=== PATIENT | male | born 1955 | race Caucasian/White ===

== ENCOUNTER 2019-01-08 10:13 | Emergency (ER) | payer OTHER ==
[~2019-01-08] VITALS: Ht 185.4 cm; Wt 90.7 kg
[~2019-01-08 10:13] MED LIST: (None)20 M1 PO; ALBU90OI INH; ASPI81CH PO; ATEN50 PO; Ativan0.5 MG PO; Augmentin 875-1 EACH PO; BENZ100A PO; CEPH500 PO; CITA20 PO; CYCL10 PO; Ciprodex Otic7.5 ML BOTHEARS; FLUSAL2505 IH; GABA100; GUAI600T33 PO; HYDACE10B PO; METO25ER; Prednisone20 MG PO; SIMV5; TAMS.4ER PO; TELM80 PO; TIOT18 IH; VALS80 PO; Zithromax250 MG PO
[2019-01-08 10:50] LABS: BASOPHILS ABSOLUTE AUTO 0.01 K/mm3 (0.00-0.23); BASOPHILS PERCENT AUTO 0 % (0-2); EOSINOPHILS ABSOLUTE AUTO 0.01 K/mm3 (0.00-0.68); EOSINOPHILS PERCENT AUTO 0 % (0-6); Hematocrit 44.1 % (37.0-53.0); Hemoglobin 14.2 g/dL (13.5-17.5); IMMATURE GRAN ABSOLUTE AUTO 0.05 K/mm3 (0.00-0.10); IMMATURE GRAN PERCENT AUTO 1 % (0-1); LYMPHOCYTES ABSOLUTE AUTO 1.05 K/mm3 (0.84-5.20); LYMPHOCYTES PERCENT AUTO 22 % (21-46); MONOCYTES ABSOLUTE AUTO 2.17 K/mm3 (0.16-1.47); MONOCYTES PERCENT AUTO 45 % (4-13); Mean Corpuscular HGB 30.5 pg (26.0-34.0); Mean Corpuscular HGB Conc 32.2 g/dL (31.5-36.5); Mean Corpuscular Volume 95 fL (80-100); Mean Platelet Volume 10.2 fL (9.1-12.4); NEUTROPHILS ABSOLUTE AUTO 1.54 K/mm3 (1.96-9.15); NEUTROPHILS PERCENT AUTO 32 % (41-73); Platelet Count 139 K/mm3 (150-400); RDW Coefficient Variation 12.9 % (11.7-14.2); Red Blood Cell Count 4.66 M/mm3 (4.30-5.90); White Blood Cell Count 4.83 K/mm3 (4.00-11.30)
[2019-01-08 11:21] LABS: Alanine Aminotransfer (ALT/SGP 40 U/L (12-78); Albumin, Blood 4.3 g/dL (3.4-5.0); Alk Phos 55 U/L (50-136); Anion Gap 8 mmol/L (6-16); Aspartate Aminotrans (AST/SGOT 41 U/L (12-37); Bilirubin, Total 0.6 mg/dL (0.1-1.0); Blood Urea Nitrogen 24 mg/dL (8-24); Bun/Creatinine Ratio 21.4 (12.0-20.0); CO2, Blood 29 mmol/L (21-32); Calcium, Blood 8.9 mg/dL (8.5-10.1); Chloride, Blood 98 mmol/L (98-108); Creatinine, Blood 1.12 mg/dL (0.60-1.20); Globulin, Blood 4.4 g/dL (2.2-4.0); Glomerular Filtration Rate >60 (60-); Glucose, Blood 99 mg/dL (70-99); Potassium, Blood 3.6 mmol/L (3.5-5.5); Sodium, Blood 135 mmol/L (136-145); Total Protein, Blood 8.7 g/dL (6.4-8.2); Troponin I <0.015 ng/mL (0.000-0.040)
[2019-01-08 11:44] LABS: Influenza A Negative (NEGATIVE); Influenza B Negative (NEGATIVE)
[2019-01-08] MEDS ORDERED: Prednisone20 MG PO (11:56)
[2019-01-08] MEDS ORDERED: BUSP10 (12:52)
[2019-01-08] MEDS ORDERED: LOSA25 (12:53)
== END 2019-01-08 13:13 | disposition home or self-care (01) ==
LOC: ER 10:13
PROVIDERS: Physician Assistant
DX: J96.20 Acute and chronic respiratory failure, unspecified whether with hypoxia or hypercapnia (principal); I10 Essential (primary) hypertension; I25.2 Old myocardial infarction; N40.0 Benign prostatic hyperplasia without lower urinary tract symptoms; F17.210 Nicotine dependence, cigarettes, uncomplicated; Z79.52 Long term (current) use of systemic steroids; Z95.1 Presence of aortocoronary bypass graft
CPT/HCPCS: 36415; 71046; 80053; 83880; 84484; 85025; 87804; 93005; 93010; 94640; 94644; J2930

== ENCOUNTER 2019-01-11 05:42 | Inpatient (IN) | payer OTHER ==
[~2019-01-11] VITALS: Ht 182.9 cm; Wt 98.3 kg
[~2019-01-11 05:42] MED LIST changes: +BUSP10 PO; -GABA100; +GABA100 PO; +LOSA25 PO; -METO25ER; +METO25ER PO; +SIMV40 PO; -SIMV5
[2019-01-11 06:08] LABS: BASOPHILS ABSOLUTE AUTO 0.05 K/mm3 (0.00-0.23); BASOPHILS PERCENT AUTO 0 % (0-2); EOSINOPHILS ABSOLUTE AUTO 0.03 K/mm3 (0.00-0.68); EOSINOPHILS PERCENT AUTO 0 % (0-6); Hematocrit 39.2 % (37.0-53.0); Hemoglobin 12.8 g/dL (13.5-17.5); IMMATURE GRAN ABSOLUTE AUTO 0.76 K/mm3 (0.00-0.10); IMMATURE GRAN PERCENT AUTO 3 % (0-1); LYMPHOCYTES ABSOLUTE AUTO 0.57 K/mm3 (0.84-5.20); LYMPHOCYTES PERCENT AUTO 2 % (21-46); MONOCYTES ABSOLUTE AUTO 3.09 K/mm3 (0.16-1.47); MONOCYTES PERCENT AUTO 12 % (4-13); Mean Corpuscular HGB 30.6 pg (26.0-34.0); Mean Corpuscular HGB Conc 32.7 g/dL (31.5-36.5); Mean Corpuscular Volume 94 fL (80-100); Mean Platelet Volume 10.8 fL (9.1-12.4); NEUTROPHILS ABSOLUTE AUTO 20.38 K/mm3 (1.96-9.15); NEUTROPHILS PERCENT AUTO 82 % (41-73); Platelet Count 143 K/mm3 (150-400); RDW Coefficient Variation 12.9 % (11.7-14.2); RDW Standard Deviation 44.4 fL (35.1-46.3); Red Blood Cell Count 4.18 M/mm3 (4.30-5.90); White Blood Cell Count 24.88 K/mm3 (4.00-11.30)
[2019-01-11 06:35] LABS: Influenza A Negative (NEGATIVE); Influenza B Negative (NEGATIVE)
[2019-01-11 06:43] LABS: Alanine Aminotransfer (ALT/SGP 25 U/L (12-78); Albumin, Blood 3.5 g/dL (3.4-5.0); Albumin/Globulin Ratio 0.8 (0.8-1.8); Alk Phos 79 U/L (50-136); Anion Gap 10 mmol/L (6-16); Aspartate Aminotrans (AST/SGOT 25 U/L (12-37); Bilirubin, Total 0.4 mg/dL (0.1-1.0); Blood Urea Nitrogen 49 mg/dL (8-24); CO2, Blood 22 mmol/L (21-32); Calcium, Blood 8.5 mg/dL (8.5-10.1); Chloride, Blood 102 mmol/L (98-108); Globulin, Blood 4.6 g/dL (2.2-4.0); Glomerular Filtration Rate 54 (60-); Glucose, Blood 141 mg/dL (70-99); International Normalized Ratio 1.01; Potassium, Blood 3.8 mmol/L (3.5-5.5); Prothrombin Time Results 10.7 Sec (9.7-11.5); Sodium, Blood 134 mmol/L (136-145); Total Protein, Blood 8.1 g/dL (6.4-8.2); Troponin I <0.015 ng/mL (0.000-0.040)
[2019-01-11 16:08] LABS: Hematocrit 37.1 % (37.0-53.0)
--- NOTE | 2019-01-11 17:07 | NUR ---
Arrival/Summary See admit assessment for detailed assessment. Pt arrived to unit from ED at approx 1635. VSS. In no apparent sign of distress. Pt states that he is feeling much better compared to when he first came in this AM. Pt is independent in the room. Calling appropriately and repositions self. Denies any acute complaints at this time. Will continue to monitor until report is given to veronica GRANADOS.
--- NOTE | 2019-01-11 23:05 | NUR ---
PCU NIGHTSHIFT ASSUMED CARE OF PT APPROX. 1900. PT A&OX4. ASSESMENT COMPLETED. VITAL SIGNS STABLE. PT SITTING AT BEDSIDE AT THIS TIME. ABLE TO HAVE A SNACK AND TOLERATED WELL. LUNG SOUNDS COARSE T/O W/ EXPIRATORY WHEEZES IN LOW LOBES. HEART RATE SINUS TACHYCARDIA 100'-110'S. BED IN LOW POSITION, CALL LIGHT IN REACH AND PT DENIES ANY NEEDS AT THIS TIME. WILL CONTINUE TO MONITOR.
[2019-01-12 00:14] LABS: Hematocrit 37.2 % (37.0-53.0); Hemoglobin 12.1 g/dL (13.5-17.5)
--- NOTE | 2019-01-12 01:41 | NUR ---
note G.I. PHYSICIAN IN TO SEE PT. PHYSICIAN PLAN FOR POSSIBLE EGD TOMORROW (01/12/19). PT TO HAVE WATER ONLY UNTIL 0700AM ON 01/12/19. PT TO BE NPO AT 01/12/19 AT 0700.
[2019-01-12 04:13] LABS: Hematocrit 38.4 % (37.0-53.0); Hemoglobin 12.1 g/dL (13.5-17.5); Mean Corpuscular HGB 30.7 pg (26.0-34.0); Mean Corpuscular HGB Conc 31.5 g/dL (31.5-36.5); Mean Platelet Volume 10.5 fL (9.1-12.4); Platelet Count 153 K/mm3 (150-400); RDW Standard Deviation 46.5 fL (35.1-46.3); Red Blood Cell Count 3.94 M/mm3 (4.30-5.90); White Blood Cell Count 23.33 K/mm3 (4.00-11.30)
[2019-01-12 04:14] LABS: Mean Corpuscular Volume 98 fL (80-100)
[2019-01-12 04:28] LABS: Anion Gap 9 mmol/L (6-16); Blood Urea Nitrogen 28 mg/dL (8-24); Bun/Creatinine Ratio 33.2 (12.0-20.0); CO2, Blood 22 mmol/L (21-32); Calcium, Blood 8.2 mg/dL (8.5-10.1); Chloride, Blood 106 mmol/L (98-108); Creatinine, Blood 0.84 mg/dL (0.60-1.20); Glomerular Filtration Rate >60 (60-); Glucose, Blood 193 mg/dL (70-99); Potassium, Blood 4.5 mmol/L (3.5-5.5); Prothrombin Time Results 10.6 Sec (9.7-11.5); Sodium, Blood 137 mmol/L (136-145)
--- NOTE | 2019-01-12 05:47 | NUR ---
SHIFT SUMMARY PT PLEASANT, COOPERATIVE AND USES CALL LIGHT APPROPRIATELY. PT REMANINS A&OX4. ASSESSMENT FINDINGS FROM MORNING REMAIN UNCHANGED. VITAL SIGNS REMAIN STABLE. OXYGEN SATS IN 90'S VIA 5L OXYGEN VIA N.C. PT ABLE TO AMBULATE TO BATHROOM NEEDED. PMD AND G.I. PHYSICAIN IN TO SEE PT THIS SHIFT. PT TO BE NPO AT 0700 THIS MORNING, 01/12/19. BED IN LOW POSITION, CALL LIGHT IN REACH AND PT DENIES ANY NEEDS AT THIS TIME. WILL CONTINUE TO MONITOR UNTIL HANDOFF TO DAYSHIFT RN.
--- NOTE | 2019-01-12 08:49 | NUR ---
Assumed Care: Assumed care of pt at approx 0700. VSS. In no apparent sign of distress. C/o some mild pain to R rib cage for past few days, but that pain is tolerable. Pt now on RA and is tolerating well. See shift assessment for detailed assessment. Plan is for pt to have CT scan to rule out PE this AM and for EGD later today. Pt has been NPO since 0700 per orders from GI. Pt is currently resting in bed with call light within reach. Denies any further questions, complaints or requests at this time. Will continue to monitor.
--- NOTE | 2019-01-12 16:49 | NUR ---
01/12/[address] HERE TO PROVIDE ANESTHESIA CARE, PLEASE SEE ANESTHESIA RECORD FOR DETAILS. History, Chart, Medications and Allergies reviewed before start of procedure. PATIENT CONFIRMS NPO STATUS AND AGREES WITH SCHEDULED PROCEDURE. MONITOR INTACT WITH CONTINUOUS PULSE OXIMETRY AND INTERMITTENT BP. O2 VIA N/C INTACT THROUGHOUT SEDATION/PROCEDURE, WITH POM MASK AT 10 L.
--- NOTE | 2019-01-13 00:23 | NUR ---
PCU NIGHTSHIFT ASSUMED CARE OF PT LANNY. 1899. A&O X4. ASSESSMENT COMPLETED, VITAL SIGNS TABLE. PT HEART RATE REMAINS SINUS TACHYCARDIA. IN REPORT PREVIOUS SHIFT RN REPORTED PT HAD SOME AGGITATION AND CONFUSION WITH ANESTETHIA WEARING OFF. IN ASSESSING THE PT NO S/SX OF THIS WAS NOTED. WILL CONTINUE TO MONITOR THIS. PT ABLE TO EAT DINNER AND TOLERATED WELL. BED IN LOW POSTION, BED ALARM ON, CALL LIGHT IN REACH AND PT DENEIS ANY NEEDS AT THIS TIME.
[2019-01-13 04:21] LABS: BASOPHILS ABSOLUTE AUTO 0.04 K/mm3 (0.00-0.23); BASOPHILS PERCENT AUTO 0 % (0-2); EOSINOPHILS ABSOLUTE AUTO 0.01 K/mm3 (0.00-0.68); EOSINOPHILS PERCENT AUTO 0 % (0-6); Hematocrit 33.7 % (37.0-53.0); Hemoglobin 10.6 g/dL (13.5-17.5); IMMATURE GRAN ABSOLUTE AUTO 0.84 K/mm3 (0.00-0.10); IMMATURE GRAN PERCENT AUTO 7 % (0-1); LYMPHOCYTES ABSOLUTE AUTO 0.57 K/mm3 (0.84-5.20); LYMPHOCYTES PERCENT AUTO 4 % (21-46); MONOCYTES ABSOLUTE AUTO 1.34 K/mm3 (0.16-1.47); MONOCYTES PERCENT AUTO 10 % (4-13); Mean Corpuscular HGB Conc 31.5 g/dL (31.5-36.5); Mean Corpuscular Volume 96 fL (80-100); Mean Platelet Volume 10.9 fL (9.1-12.4); NEUTROPHILS ABSOLUTE AUTO 10.16 K/mm3 (1.96-9.15); NEUTROPHILS PERCENT AUTO 78 % (41-73); NRBC ABSOLUTE 0.02 K/mm3 (0.00-0.02); NRBC Auto 0.2 /100 WBC (0.0-0.2); Platelet Count 179 K/mm3 (150-400); RDW Coefficient Variation 13.2 % (11.7-14.2); Red Blood Cell Count 3.53 M/mm3 (4.30-5.90); White Blood Cell Count 12.96 K/mm3 (4.00-11.30)
[2019-01-13 04:46] LABS: Albumin, Blood 2.5 g/dL (3.4-5.0); Anion Gap 7 mmol/L (6-16); Blood Urea Nitrogen 22 mg/dL (8-24); Bun/Creatinine Ratio 30.1 (12.0-20.0); CO2, Blood 26 mmol/L (21-32); Calcium, Blood 8.2 mg/dL (8.5-10.1); Chloride, Blood 106 mmol/L (98-108); Creatinine, Blood 0.73 mg/dL (0.60-1.20); Glomerular Filtration Rate >60 (60-); Glucose, Blood 208 mg/dL (70-99); Phosphorus, Blood 1.9 mg/dL (2.5-4.9); Sodium, Blood 139 mmol/L (136-145)
--- NOTE | 2019-01-13 05:51 | NUR ---
SHIFT SUMMARY PT PLEASANT, COOPERATIVE AND USES CALL LIGHT APPROPRIATELY. PT REMAINS A&O X4, ASSESSMENT FINDINGS REMAIN UNCHANGED AND VITAL SIGNS STABLE. ALTHOUGHT APPROX. 0230 PT WOKE UP FROM DEEP SLEEP AND WAS SLIGHTLY DISORIENTED. REORIENTED PT BACK TO UNIT. AFTER A SHORT PERIOD OF TIME PT WAS ABLE TO TELL ME HOW HE HAD WOKE UP AND WAS STILL SLEEPY AND SLIGHTLY CONFUSED. HE WAS ABLE TO TELL ME DATE, TIME, PLACE AND SITUATION. AND ANSWER ALL OTHER QUESTIONS AT THIS TIME. HAS REMAINED ORIENTED AFTER THIS. PT WAS ABLE TO REST MOST OF SHIFT. BED IN LOW POSTION, CALL LIGHT IN REACH AND PT DENIES ANY NEEDS AT THIS TIME. WILL CONTINUE TO MONITOR UNTIL HANDOFF TO DAYSHIFT RN.
--- NOTE | 2019-01-13 07:42 | NUR ---
Assumed Care: Assumed care of pt at approx 0700. VSS. in no apparent sign of distress. Pt is A&Ox4. Calls appropriately. Denies any pain. See shift assessment for detailed assessment. Pt receiving breathing treatment at this time. Currently sitting up at bedside. Pt reports that he has been working on PT exercises that were taught to him t/o the night. Denies any further questions, complaints or requests at this time. Will continue to monitor.
--- NOTE | 2019-01-13 19:30 | NUR ---
Shift Summary No acute changes since initial shift assessment. VSS. In no apparent sign of distress. Pt is A&Ox4. Calls appropriately and denies any pain. No s/sx of any GI bleed t/o the shift. Pt has overall had an uneventful day. Calls appropriately. Independent in room. Plan is to keep pt for at least one more day for final blood culture results. Pt on RA and tolerating well. Pt med status with tele, but no bed assignment at this time. No acute changes or events on tele. Pt now SR in the 's. Denies any other acute complaints/events t/o the shift. Currently resting in bed with call light within reach. Denies any further questions, complaints or requests at this time. Report given to veronica GRANADOS.
--- NOTE | 2019-01-13 23:52 | NUR ---
PCU NIGHTSHIFT ASSUMED CARE OF PT APPROX. 1900. PT A&O X4, ASSESSMENT COMPLETED, VITAL SIGNS STABLE. ALTHOUGH PT BLOOD PRESSURE SLIGHTLY ELEVATED WHEN TAKE PT HAD JUST FINISHED WALKING AROUND ROOM, AND WAS TALKING WITH FAMILY AND SLIGHTLY AGGITATED. WILL CONTINUE TO MONITOR THIS. PT SITTING AT BEDSIDE AT SHIFT CHANGED. PT ON RA WITH SATS IN 90'S. FAMILY AT BEDSIDE. ANSWERED QUESTIONS CAME UP. BED IN LOW POSTION, CALL LIGHT IN REACH AND PT DENIES ANY NEEDS AT THIS TIME. WILL CONTINUE TO MONITOR.
--- NOTE | 2019-01-14 05:06 | NUR ---
SHIFT SUMMARY PT PLEASANT, COOPERATIVE, AND USES CALL LIGHT APPROPRIATELY. PT REMAINS A&O X4, ASSESSMENT FINDINGS REMAIN UNCHANGED. VITAL SIGNS STABLE. PT ON ROOM AIR WITH OXYGEN SATS IN 90'S. PT ABLE TO REST MOST OF SHIFT. PT STATES HE IS READY TO GO. BED IN LOW POSITION, CALL LIGHT IN REACH AND PT DENIES ANY NEEDS AT THIS TIME. WILL CONTINUE TO MONITOR UNTIL HANDOFF TO DAYSHIFT RN.
[2019-01-14 05:16] LABS: Hematocrit 36.2 % (37.0-53.0); Hemoglobin 11.4 g/dL (13.5-17.5); Mean Corpuscular HGB 30.5 pg (26.0-34.0); Mean Corpuscular HGB Conc 31.5 g/dL (31.5-36.5); Mean Corpuscular Volume 97 fL (80-100); Mean Platelet Volume 10.5 fL (9.1-12.4); NRBC ABSOLUTE 0.03 K/mm3 (0.00-0.02); NRBC Auto 0.2 /100 WBC (0.0-0.2); Platelet Count 205 K/mm3 (150-400); RDW Coefficient Variation 13.1 % (11.7-14.2); RDW Standard Deviation 46.5 fL (35.1-46.3); Red Blood Cell Count 3.74 M/mm3 (4.30-5.90); White Blood Cell Count 15.89 K/mm3 (4.00-11.30)
[2019-01-14 05:42] LABS: Albumin, Blood 2.6 g/dL (3.4-5.0); Anion Gap 9 mmol/L (6-16); Blood Urea Nitrogen 23 mg/dL (8-24); Bun/Creatinine Ratio 29.9 (12.0-20.0); CO2, Blood 24 mmol/L (21-32); Calcium, Blood 8.2 mg/dL (8.5-10.1); Chloride, Blood 105 mmol/L (98-108); Creatinine, Blood 0.77 mg/dL (0.60-1.20); Glomerular Filtration Rate >60 (60-); Glucose, Blood 112 mg/dL (70-99); Phosphorus, Blood 2.3 mg/dL (2.5-4.9); Potassium, Blood 4.2 mmol/L (3.5-5.5); Sodium, Blood 138 mmol/L (136-145)
[2019-01-14 06:22] LABS: BASOPHILS PERCENT MAN 0 % (0-2); EOSINOPHILS PERCENT MAN 0 % (0-6); LYMPHOCYTES ABSOLUTE MAN 1.58 K/mm3 (0.84-5.20); LYMPHOCYTES PERCENT MAN 10 % (21-46); METAMYELOCYTE ABSOLUTE MAN 1.11 K/mm3 (0.00-0.00); METAMYELOCYTE PERCENT MAN 7 % (0-0); MONOCYTES ABSOLUTE MAN 1.74 K/mm3 (0.16-1.47); MONOCYTES PERCENT MAN 11 % (4-13); MYELOCYTE ABSOLUTE MAN 0.47 K/mm3 (0.00-0.00); MYELOCYTE PERCENT MAN 3 % (0-0); NEUTROPHILS ABSOLUTE MAN 10.96 K/mm3 (1.96-9.15); SEG NEUTROPHILS PERCENT MAN 69 % (41-73); TOTAL CELLS COUNTED 100
--- NOTE | 2019-01-14 10:25 | NUR ---
ELEVATED BP TALKED WITH DR FUCHS THIS AM ABOUT PT ELEVATED BP DURING THE NIGHT. GAVE PT HIS AM MEDICATIONS EARLY D/T ELEVATED BP. CHECKED HIS BP AT RESTA BOUT AN HOUR AFTER MEDICATIONS. BP DOWN SOME. CHECKED HIM AGAIN AFTER WALKING AND GHIS BP ELEVATED. CALLED Sven FUCHS. ORDER RECEIVED. D/C ORDER HAVE ARRIVED. TALKED WITH PT. HE UNDERSTANDS THE NEED TO GET HIS BP LOWER BEFORE GOING HOME. CONTINUE POT,.
[2019-01-14] MEDS ORDERED: PRED20 PO (10:45)
[2019-01-14] MEDS ORDERED: AZIT500 PO (10:46)
[2019-01-14] MEDS ORDERED: CEFP200 PO (10:47)
[2019-01-14] MEDS ORDERED: GUAI600T33 PO (10:47)
[2019-01-14] MEDS ORDERED: OMEPRAZOLE MAGN20 MG PO (10:48)
--- NOTE | 2019-01-14 10:48 | NUR ---
Spiritual care/advance directive education visit conducted. I entered patient's room and found him sitting on the edge of his bed. I introduced myself and patient welcomed me in. Therapeutic alliance was easily established so patient openly shared about his brigida traditions, his family and his current medical issues. I listened empathically, normalized patient's experience, provided pastoral psychosocial rehabilitation counselor and provided prayer. Patient responded well to all interventions. I also spoke with patient about filling out an advance directive. Patient did not comprehend the content or resaon for filing the advance directive. I aprroached this from several different angles until it appeared to be awkard so I simply left the document with patient and patient said that he would read through it with his . The visit ended well with a prayer of blessing to which patient expressed gratitude.
--- NOTE | 2019-01-14 12:22 | NUR ---
ELEVATED BP GAVE PT HYDRALAZINE 10MG IV X1 AT 1030. CHECKED BLOOD PRESSURE SEVERAL TIMES AFTER. CALLED DR FUCHS TO REPORT BP. DBP 90+ [facility]. ORDER TO HOLD DISCARGE AND RECHECK BP IN 1 HOUR. FAMILY HERE. CONTINUE POT.
--- NOTE | 2019-01-14 19:50 | NUR ---
ASSUMED CARED PT RESTIN IN ROOM COMFORTABLY W/ SPOUSE AT BEDSIDE. PLEASENT AFFECT AND COOPERATIVE W/ CARE. PER DAY SHIFT PT WAS TO BE DC'D THIS AFTERNOON BUT PT HAD HTN T/O DAY, THAT WOULD NOT RESOLVE W/ MEDICATIONS WELL. PT DENIES ANY CP, REPORTS SOB DECREASED. REPORTS STILL HAS COUGH, BUT REPORTS FEELING WELL ENOUGH TO GO HOME. REPS EVEN UNLBOARED ON RA. CALL LIGHT IN REACH.
[2019-01-15 05:14] LABS: Hematocrit 37.1 % (37.0-53.0); Hemoglobin 11.9 g/dL (13.5-17.5); Mean Corpuscular HGB 30.4 pg (26.0-34.0); Mean Corpuscular HGB Conc 32.1 g/dL (31.5-36.5); Mean Corpuscular Volume 95 fL (80-100); Mean Platelet Volume 10.4 fL (9.1-12.4); NRBC ABSOLUTE 0.05 K/mm3 (0.00-0.02); NRBC Auto 0.3 /100 WBC (0.0-0.2); Platelet Count 214 K/mm3 (150-400); RDW Coefficient Variation 13.2 % (11.7-14.2); RDW Standard Deviation 45.3 fL (35.1-46.3); Red Blood Cell Count 3.92 M/mm3 (4.30-5.90); White Blood Cell Count 18.43 K/mm3 (4.00-11.30)
[2019-01-15 05:43] LABS: Albumin, Blood 2.6 g/dL (3.4-5.0); Anion Gap 8 mmol/L (6-16); Blood Urea Nitrogen 19 mg/dL (8-24); Bun/Creatinine Ratio 28.1 (12.0-20.0); CO2, Blood 26 mmol/L (21-32); Chloride, Blood 103 mmol/L (98-108); Creatinine, Blood 0.68 mg/dL (0.60-1.20); Glomerular Filtration Rate >60 (60-); Glucose, Blood 95 mg/dL (70-99); Potassium, Blood 3.9 mmol/L (3.5-5.5); Sodium, Blood 137 mmol/L (136-145)
[2019-01-15 06:07] LABS: BAND PERCENT MAN 1 % (0-8); BASOPHILS PERCENT MAN 0 % (0-2); EOSINOPHILS PERCENT MAN 0 % (0-6); LYMPHOCYTES ABSOLUTE MAN 2.94 K/mm3 (0.84-5.20); LYMPHOCYTES PERCENT MAN 16 % (21-46); METAMYELOCYTE ABSOLUTE MAN 1.29 K/mm3 (0.00-0.00); METAMYELOCYTE PERCENT MAN 7 % (0-0); MONOCYTES ABSOLUTE MAN 1.47 K/mm3 (0.16-1.47); MONOCYTES PERCENT MAN 8 % (4-13); MYELOCYTE ABSOLUTE MAN 0.55 K/mm3 (0.00-0.00); MYELOCYTE PERCENT MAN 3 % (0-0); NEUTROPHILS ABSOLUTE MAN 12.16 K/mm3 (1.96-9.15); SEG NEUTROPHILS PERCENT MAN 65 % (41-73); TOTAL CELLS COUNTED 100
--- NOTE | 2019-01-15 06:52 | NUR ---
SHIFT SUMMARY PT RESTING IN ROOM COMFORTABLY W/ SPOUSE AT BEDSIDE. NO ACUTE CHANGES IN STATUS OVERNIGHT. PT BP DECREASED OVERNIGHT, WITH A SLIGHT INCREASE THIS AM. BP STILL REMAINS AT A STABLE LEVEL. PER PT AM BP IS BASELINE FOR HIM AT HOME. PT REPORTS HAS HX OF HTN. PT LOOKING FORWARD TO DOCTOR ARRIVAL FOR DC TODAY. EDUCATED THAT PROVIDER WILL COME EVALUATE PT FOR DC THIS AM. CALL LIGHT IN REACH.
--- NOTE | 2019-01-15 09:48 | NUR ---
PT IS DISCHARGED TO HOME. OUT TO LOBBY VIA WHEEL CHAIR. CHANGED 3 MEDICATIONS ON EMAR PRIOR TO PATIENT LEAVING AND [facility] IS NOTIFIED IN [place]. ALSO NEBULIZER ORDER IS OBTAINED AND FAXED TO [facility] FOR PATIENT.
[2019-01-15 11:10] LABS: HEPATITIS C QUANTITATION 54900 IU/mL (.)
[2019-01-17 14:08] LABS: HEPATITIS C GENOTYPE 2a/2c (.)
== END 2019-01-15 09:44 | disposition home or self-care (01) | DRG 871 ==
LOC: ER 05:42 → ERHOLD 08:29 → PCU 08:29
PROVIDERS: Emergency Medicine; Family Medicine; Internal Medicine Critical Care Medicine; Internal Medicine Gastroenterology; ADMIT Internal Medicine
PROC: 0DB98ZX Excision of Duodenum, Via Natural or Artificial Opening Endoscopic, Diagnostic (ICD-10-PCS; 2019-01-12)
PROC: 0W3P8ZZ Control Bleeding in Gastrointestinal Tract, Via Natural or Artificial Opening Endoscopic (ICD-10-PCS; principal; 2019-01-12 11:30)
PROC: 0DB98ZX Excision of Duodenum, Via Natural or Artificial Opening Endoscopic, Diagnostic (ICD-10-PCS; 2019-01-12 11:30)
PROC: 0DB68ZX Excision of Stomach, Via Natural or Artificial Opening Endoscopic, Diagnostic (ICD-10-PCS; 2019-01-12 11:30)
DX: A41.2 Sepsis due to unspecified staphylococcus (principal); R65.21 Severe sepsis with septic shock; J96.21 Acute and chronic respiratory failure with hypoxia; J18.9 Pneumonia, unspecified organism; J69.0 Pneumonitis due to inhalation of food and vomit; K22.11 Ulcer of esophagus with bleeding; J44.1 Chronic obstructive pulmonary disease with (acute) exacerbation; E87.1 Hypo-osmolality and hyponatremia; J44.0 Chronic obstructive pulmonary disease with (acute) lower respiratory infection; D62 Acute posthemorrhagic anemia; I10 Essential (primary) hypertension; I25.10 Atherosclerotic heart disease of native coronary artery without angina pectoris; G40.909 Epilepsy, unspecified, not intractable, without status epilepticus; E83.39 Other disorders of phosphorus metabolism; D64.9 Anemia, unspecified; B19.20 Unspecified viral hepatitis C without hepatic coma; K21.9 Gastro-esophageal reflux disease without esophagitis; N40.0 Benign prostatic hyperplasia without lower urinary tract symptoms; D69.6 Thrombocytopenia, unspecified
CPT/HCPCS: 36415; 71046; 71260; 76700; 80048; 80053; 80069; 82105; 83605; 83880; 84484; 85014; 85018; 85025; 85027; 85610; 85730; 87040; 87070; 87205; 87522; 87804; 87902; 88305; 88341; 88342; 93005; 93010; 94640; 94644; 94760; 96361; 96374; 96375; 97110; 97116; 97161; 99285-25; C9113; J0360; J0456; J0696; J2250; J2930; J7030; J7050; J7120; Q9967

== ENCOUNTER 2019-10-04 09:49 | Day surgery (SDC) | payer OTHER ==
[~2019-10-04] VITALS: Ht 182.9 cm; Wt 111.4 kg
[~2019-10-04 09:49] MED LIST changes: +AZIT500 PO; +CEFP200 PO; +OMEPRAZOLE MAGN20 MG PO; +PRED20 PO; +Venlafaxine H37.5 MG PO
== END 2019-10-04 11:59 | disposition home or self-care (01) ==
LOC: ORSCSDS 09:49
DX: Z12.11 Encounter for screening for malignant neoplasm of colon (principal); Z86.010 Personal history of colon polyps; D12.2 Benign neoplasm of ascending colon; D12.4 Benign neoplasm of descending colon; K63.5 Polyp of colon; K64.8 Other hemorrhoids; I10 Essential (primary) hypertension; I25.10 Atherosclerotic heart disease of native coronary artery without angina pectoris; J44.9 Chronic obstructive pulmonary disease, unspecified; K21.9 Gastro-esophageal reflux disease without esophagitis; Z79.899 Other long term (current) drug therapy; I25.2 Old myocardial infarction; Z87.891 Personal history of nicotine dependence
CPT/HCPCS: 88305; J2405; J2704; J7120

== ENCOUNTER → 2019-11-01 | Outpatient (CLI) | payer OTHER ==
[~2019-11-01] MED LIST changes: +ALBU2.5V5 INH; +AMLO5 PO; +ATOR80 PO; +Aspir 8181 MG PO; +CLOP75 PO; +HYDCHL25 PO; +STIOLTO RESPIMAT4 GM INH
== END | disposition home or self-care (01) ==
LOC: LAB 17:30 → LAB SHORT 17:30
DX: L02.91 Cutaneous abscess, unspecified (principal)
CPT/HCPCS: 87070; 87077; 87147; 87186; 87205

== ENCOUNTER 2019-12-09 09:00 | Day surgery (SDC) | payer OTHER ==
[~2019-12-09] VITALS: Ht 182.9 cm; Wt 113.0 kg
[2019-12-09 10:34] LABS: BASOPHILS ABSOLUTE AUTO 0.02 K/mm3 (0.00-0.23); BASOPHILS PERCENT AUTO 0 % (0-2); EOSINOPHILS ABSOLUTE AUTO 0.01 K/mm3 (0.00-0.68); EOSINOPHILS PERCENT AUTO 0 % (0-6); Hematocrit 39.6 % (37.0-53.0); Hemoglobin 12.3 g/dL (13.5-17.5); IMMATURE GRAN ABSOLUTE AUTO 0.18 K/mm3 (0.00-0.10); IMMATURE GRAN PERCENT AUTO 3 % (0-1); LYMPHOCYTES ABSOLUTE AUTO 1.44 K/mm3 (0.84-5.20); LYMPHOCYTES PERCENT AUTO 20 % (21-46); MONOCYTES ABSOLUTE AUTO 1.12 K/mm3 (0.16-1.47); MONOCYTES PERCENT AUTO 15 % (4-13); Mean Corpuscular HGB 29.7 pg (26.0-34.0); Mean Corpuscular HGB Conc 31.1 g/dL (31.5-36.5); Mean Corpuscular Volume 96 fL (80-100); Mean Platelet Volume 10.3 fL (9.1-12.4); NEUTROPHILS ABSOLUTE AUTO 4.53 K/mm3 (1.96-9.15); NEUTROPHILS PERCENT AUTO 62 % (41-73); Platelet Count 178 K/mm3 (150-400); RDW Coefficient Variation 13.6 % (11.7-14.2); RDW Standard Deviation 48.1 fL (35.1-46.3); Red Blood Cell Count 4.14 M/mm3 (4.30-5.90)
[2019-12-09 10:36] LABS: Anion Gap 6 mmol/L (6-16); Blood Urea Nitrogen 14 mg/dL (8-24); CO2, Blood 27 mmol/L (21-32); Calcium, Blood 8.9 mg/dL (8.5-10.1); Chloride, Blood 103 mmol/L (98-108); Creatinine, Blood 0.88 mg/dL (0.60-1.20); Glomerular Filtration Rate >60 (60-); Glucose, Blood 98 mg/dL (70-99); Potassium, Blood 3.7 mmol/L (3.5-5.5); Sodium, Blood 136 mmol/L (136-145)
[2019-12-09 10:37] LABS: International Normalized Ratio 1.02; Prothrombin Time Results 10.9 Sec (9.7-11.5)
--- NOTE | 2019-12-09 16:42 | NUR ---
1645 Patient up oob and dressed. Groin site stable with tegaderm and Efrain patch in place. Patinet instructed to removed tomorrow afternoon. Shower only and no lifting for 5 days. PIV discontinued from the left AC and pressure dressing applied. Patient instructed to removed the left arm dressing in an hour. Reviewed all medication and no changes to med by MD. at bedside, Patient and deny any questions or concerns. They have a son comin to pick them up at 1700. Patient escorted to the door to wait for ride. Discharged home at 1700.
== END 2019-12-09 16:45 | disposition home or self-care (01) ==
LOC: MHTC 09:00
PROVIDERS: Internal Medicine Cardiovascular Disease
PROC: 4A023N7 Measurement of Cardiac Sampling and Pressure, Left Heart, Percutaneous Approach (ICD-10-PCS; principal; 2019-12-09)
PROC: B201YZZ Plain Radiography of Multiple Coronary Arteries using Other Contrast (ICD-10-PCS; principal; 2019-12-09)
PROC: B203YZZ Plain Radiography of Multiple Coronary Artery Bypass Grafts using Other Contrast (ICD-10-PCS; principal; 2019-12-09)
DX: I25.10 Atherosclerotic heart disease of native coronary artery without angina pectoris (principal); I25.810 Atherosclerosis of coronary artery bypass graft(s) without angina pectoris; E78.5 Hyperlipidemia, unspecified; E66.3 Overweight; B19.10 Unspecified viral hepatitis B without hepatic coma; B19.20 Unspecified viral hepatitis C without hepatic coma; J44.9 Chronic obstructive pulmonary disease, unspecified; Z79.82 Long term (current) use of aspirin; Z79.899 Other long term (current) drug therapy; Z87.891 Personal history of nicotine dependence; Z68.34 Body mass index [BMI] 34.0-34.9, adult
CPT/HCPCS: 80048; 85025; 85610; 93459; 99152; 99153; C1769; C1894; J1644; J2250; J3010; J7030; Q9967

== ENCOUNTER → 2020-01-06 | Outpatient (CLI) | payer OTHER ==
[~2020-01-06] MED LIST changes: +SPIR25; +STIOLTO RESPIMAT4 GM; +TORSE20
[2020-01-06 14:37] LABS: BASOPHILS ABSOLUTE AUTO 0.03 K/mm3 (0.00-0.23); BASOPHILS PERCENT AUTO 0 % (0-2); EOSINOPHILS ABSOLUTE AUTO 0.03 K/mm3 (0.00-0.68); EOSINOPHILS PERCENT AUTO 0 % (0-6); Hematocrit 39.6 % (37.0-53.0); Hemoglobin 12.7 g/dL (13.5-17.5); IMMATURE GRAN ABSOLUTE AUTO 0.33 K/mm3 (0.00-0.10); IMMATURE GRAN PERCENT AUTO 3 % (0-1); LYMPHOCYTES ABSOLUTE AUTO 2.08 K/mm3 (0.84-5.20); LYMPHOCYTES PERCENT AUTO 17 % (21-46); MONOCYTES ABSOLUTE AUTO 1.54 K/mm3 (0.16-1.47); MONOCYTES PERCENT AUTO 13 % (4-13); Mean Corpuscular HGB 30.6 pg (26.0-34.0); Mean Corpuscular HGB Conc 32.1 g/dL (31.5-36.5); Mean Corpuscular Volume 95 fL (80-100); Mean Platelet Volume 10.8 fL (9.1-12.4); NEUTROPHILS ABSOLUTE AUTO 7.94 K/mm3 (1.96-9.15); NEUTROPHILS PERCENT AUTO 66 % (41-73); Platelet Count 236 K/mm3 (150-400); RDW Coefficient Variation 14.4 % (11.7-14.2); RDW Standard Deviation 50.4 fL (35.1-46.3); Red Blood Cell Count 4.15 M/mm3 (4.30-5.90); White Blood Cell Count 11.95 K/mm3 (4.00-11.30)
[2020-01-06 14:42] LABS: Bun/Creatinine Ratio 18.4 (12.0-20.0); Calcium, Blood 9.3 mg/dL (8.5-10.1); Creatinine, Blood 1.36 mg/dL (0.60-1.20); Potassium, Blood 4.1 mmol/L (3.5-5.5)
== END | disposition home or self-care (01) ==
LOC: LAB SHORT 14:34 → LAB EV 14:34
PROVIDERS: Family Medicine
DX: R55 Syncope and collapse (principal)
CPT/HCPCS: 80048; 85025

== ENCOUNTER → 2020-03-19 | Outpatient (CLI) | payer OTHER ==
[2020-03-19 14:00] LABS: BASOPHILS ABSOLUTE AUTO 0.02 K/mm3 (0.00-0.23); BASOPHILS PERCENT AUTO 0 % (0-2); EOSINOPHILS ABSOLUTE AUTO 0.02 K/mm3 (0.00-0.68); EOSINOPHILS PERCENT AUTO 0 % (0-6); Hematocrit 34.4 % (37.0-53.0); IMMATURE GRAN ABSOLUTE AUTO 0.34 K/mm3 (0.00-0.10); IMMATURE GRAN PERCENT AUTO 3 % (0-1); LYMPHOCYTES ABSOLUTE AUTO 2.09 K/mm3 (0.84-5.20); LYMPHOCYTES PERCENT AUTO 19 % (21-46); MONOCYTES ABSOLUTE AUTO 1.28 K/mm3 (0.16-1.47); MONOCYTES PERCENT AUTO 12 % (4-13); Mean Corpuscular HGB 31.3 pg (26.0-34.0); Mean Corpuscular Volume 98 fL (80-100); NEUTROPHILS ABSOLUTE AUTO 7.05 K/mm3 (1.96-9.15); NEUTROPHILS PERCENT AUTO 65 % (41-73); Platelet Count 203 K/mm3 (150-400); RDW Coefficient Variation 14.7 % (11.7-14.2); RDW Standard Deviation 52.6 fL (35.1-46.3); Red Blood Cell Count 3.52 M/mm3 (4.30-5.90)
[2020-03-19 14:17] LABS: Alanine Aminotransfer (ALT/SGP 34 U/L (12-78); Albumin, Blood 4.6 g/dL (3.4-5.0); Alk Phos 74 U/L (40-126); Anion Gap 11 mmol/L (6-16); Aspartate Aminotrans (AST/SGOT 23 U/L (12-37); Bilirubin, Total 0.4 mg/dL (0.1-1.0); Blood Urea Nitrogen 20 mg/dL (8-24); Bun/Creatinine Ratio 15.4 (12.0-20.0); CO2, Blood 29 mmol/L (21-32); Chloride, Blood 100 mmol/L (98-108); Globulin, Blood 4.4 g/dL (2.2-4.0); Glomerular Filtration Rate 55 (60-); Glucose, Blood 94 mg/dL (70-99); Potassium, Blood 4.2 mmol/L (3.5-5.5); Sodium, Blood 140 mmol/L (136-145); Thyroid Stimulating Hormone 2.717 uIU/mL (0.360-4.800)
[2020-03-19 14:19] LABS: Troponin I <0.017 ng/mL (0.000-0.040)
== END | disposition home or self-care (01) ==
LOC: LAB EV 13:53 → LAB SHORT 13:53
PROVIDERS: Physician Assistant
DX: R06.09 Other forms of dyspnea (principal); R53.83 Other fatigue; D50.9 Iron deficiency anemia, unspecified; Z20.828 Contact with and (suspected) exposure to other viral communicable diseases
CPT/HCPCS: 80053; 83540; 83550; 83880; 84443; 84484; 85025; 85379; U0003

== ENCOUNTER → 2020-04-29 | Outpatient (CLI) | payer OTHER | END | disposition home or self-care (01) | LOC: LAB 11:44 → LAB SHORT 11:44 | DX: R05 Cough (principal) | CPT/HCPCS: 87070; 87205 ==

== ENCOUNTER 2020-09-01 09:46 | Day surgery (SDC) | payer OTHER ==
[~2020-09-01] VITALS: Ht 182.9 cm; Wt 120.9 kg
[~2020-09-01 09:46] MED LIST changes: +BUDE.25 INH; +METO2.5 PO; +METO50ER PO; -SPIR25; +SPIR25 PO; -TORSE20; +TORSE20 PO
[2020-09-01] MEDS ORDERED: DONE5 (10:22)
[2020-09-01] MEDS ORDERED: DONE5 PO (10:22)
[2020-09-01] MEDS ORDERED: Loratadine10 MG (10:23)
--- NOTE | 2020-09-01 11:24 | NUR ---
09/01/20 1124 Stacy Velazquez UPDATED PATIENT ON DELAY. INFORMED PATIENT THAT WE WERE STILL WAITING FOR HIS ANESTHESIOLOGIST. PATIENT AND FAMILY VERBALIZES UNDERSTANDING. ASSISTED PATIENT TO A MORE UPRIGHT SEATED POSITION.
== END 2020-09-01 12:08 | disposition home or self-care (01) ==
LOC: ORSCSDS 09:46
PROVIDERS: Internal Medicine Gastroenterology
PROC: 0DJ08ZZ Inspection of Upper Intestinal Tract, Via Natural or Artificial Opening Endoscopic (ICD-10-PCS; principal; 2020-09-01 11:15)
DX: K74.60 Unspecified cirrhosis of liver (principal); I10 Essential (primary) hypertension; I25.2 Old myocardial infarction; I25.10 Atherosclerotic heart disease of native coronary artery without angina pectoris; E78.5 Hyperlipidemia, unspecified; F41.8 Other specified anxiety disorders; J44.9 Chronic obstructive pulmonary disease, unspecified; Z87.891 Personal history of nicotine dependence; E66.9 Obesity, unspecified; Z68.36 Body mass index [BMI] 36.0-36.9, adult; Z79.01 Long term (current) use of anticoagulants; Z79.899 Other long term (current) drug therapy
CPT/HCPCS: J2704; J7120

== ENCOUNTER → 2020-09-10 | Outpatient (CLI) | payer OTHER ==
[~2020-09-10] MED LIST changes: +DONE5; +DONE5 PO; +Loratadine10 MG
[2020-09-10 20:53] LABS: Albumin, Blood 4.3 g/dL (3.4-5.0); Anion Gap 7 mmol/L (6-16); Blood Urea Nitrogen 31 mg/dL (8-24); Bun/Creatinine Ratio 25.6 (12.0-20.0); CO2, Blood 28 mmol/L (21-32); Calcium, Blood 9.6 mg/dL (8.5-10.1); Chloride, Blood 104 mmol/L (98-108); Creatinine, Blood 1.21 mg/dL (0.60-1.20); Glomerular Filtration Rate >60 (60-); Glucose, Blood 157 mg/dL (70-99); Phosphorus, Blood 2.7 mg/dL (2.5-4.9); Potassium, Blood 4.2 mmol/L (3.5-5.5); Sodium, Blood 139 mmol/L (136-145)
== END | disposition home or self-care (01) ==
LOC: LAB 18:23 → LAB SHORT 18:23
PROVIDERS: Nurse Practitioner Family
DX: R80.9 Proteinuria, unspecified (principal)
CPT/HCPCS: 80069

== ENCOUNTER → 2020-10-03 | Outpatient (CLI) | payer OTHER ==
[2020-10-05 22:49] LABS: Microalbumin, Urine Quant. 47.4 mg/L (0.000-20.000); Protein, Urine Quantitative 23.3 mg/dL (0.0-11.9)
== END | disposition home or self-care (01) ==
LOC: LAB SHORT 10:00 → LAB 10:00
PROVIDERS: Internal Medicine Nephrology
DX: N18.2 Chronic kidney disease, stage 2 (mild) (principal); D63.1 Anemia in chronic kidney disease; R73.09 Other abnormal glucose; N25.81 Secondary hyperparathyroidism of renal origin; E55.9 Vitamin D deficiency, unspecified; E78.00 Pure hypercholesterolemia, unspecified; R76.9 Abnormal immunological finding in serum, unspecified; R94.5 Abnormal results of liver function studies; R94.6 Abnormal results of thyroid function studies; D51.8 Other vitamin B12 deficiency anemias; D50.9 Iron deficiency anemia, unspecified
CPT/HCPCS: 81050; 82043; 82570; 84156

== ENCOUNTER → 2020-10-05 | Outpatient (CLI) | payer OTHER ==
[2020-10-07 20:09] LABS: METANEPH/CREAT RATIO 0.5 (0.0-1.0)
== END | disposition home or self-care (01) ==
LOC: LAB 10:30 → LAB SHORT 10:30 → LAB FUT 10-01 11:35
PROVIDERS: Internal Medicine Nephrology
DX: N18.2 Chronic kidney disease, stage 2 (mild) (principal); D63.1 Anemia in chronic kidney disease; N25.81 Secondary hyperparathyroidism of renal origin; E55.9 Vitamin D deficiency, unspecified; E78.00 Pure hypercholesterolemia, unspecified; D51.8 Other vitamin B12 deficiency anemias; D50.9 Iron deficiency anemia, unspecified; G60.9 Hereditary and idiopathic neuropathy, unspecified; R76.9 Abnormal immunological finding in serum, unspecified; R94.5 Abnormal results of liver function studies; R73.09 Other abnormal glucose
CPT/HCPCS: 82570; 83835

== ENCOUNTER 2021-09-14 10:54 | Emergency (ER) | payer OTHER ==
[~2021-09-14] VITALS: Ht 182.9 cm; Wt 126.5 kg
[2021-09-14 11:59] LABS: BASOPHILS ABSOLUTE AUTO 0.02 K/mm3 (0.00-0.23); BASOPHILS PERCENT AUTO 0 % (0-2); EOSINOPHILS ABSOLUTE AUTO 0.02 K/mm3 (0.00-0.68); EOSINOPHILS PERCENT AUTO 0 % (0-6); IMMATURE GRAN ABSOLUTE AUTO 0.26 K/mm3 (0.00-0.10); IMMATURE GRAN PERCENT AUTO 3 % (0-1); LYMPHOCYTES ABSOLUTE AUTO 1.97 K/mm3 (0.84-5.20); LYMPHOCYTES PERCENT AUTO 20 % (21-46); MONOCYTES PERCENT AUTO 13 % (4-13); Mean Corpuscular HGB 28.2 pg (26.0-34.0); Mean Corpuscular Volume 94 fL (80-100); Mean Platelet Volume 9.6 fL (9.1-12.4); NEUTROPHILS ABSOLUTE AUTO 6.51 K/mm3 (1.96-9.15); NEUTROPHILS PERCENT AUTO 65 % (41-73); Platelet Count 230 K/mm3 (150-400); RDW Coefficient Variation 16.6 % (11.7-14.2); RDW Standard Deviation 56.8 fL (35.1-46.3); Red Blood Cell Count 4.26 M/mm3 (4.30-5.90); White Blood Cell Count 10.08 K/mm3 (4.00-11.30)
[2021-09-14 12:17] LABS: Alanine Aminotransfer (ALT/SGP 31 U/L (12-78); Albumin, Blood 3.7 g/dL (3.4-5.0); Albumin/Globulin Ratio 0.8 (0.8-1.8); Alk Phos 128 U/L (50-136); Anion Gap 3 mmol/L (6-16); Aspartate Aminotrans (AST/SGOT 19 U/L (12-37); Bilirubin, Total 0.3 mg/dL (0.1-1.0); Blood Urea Nitrogen 14 mg/dL (8-24); Bun/Creatinine Ratio 16.2 (12.0-20.0); CO2, Blood 30 mmol/L (21-32); Chloride, Blood 106 mmol/L (98-108); Creatinine, Blood 0.86 mg/dL (0.60-1.20); Globulin, Blood 4.6 g/dL (2.2-4.0); Glomerular Filtration Rate >60 (60-); Glucose, Blood 132 mg/dL (70-99); Potassium, Blood 4.1 mmol/L (3.5-5.5); Sodium, Blood 139 mmol/L (136-145); Total Protein, Blood 8.3 g/dL (6.4-8.2)
== END 2021-09-14 13:55 | disposition home or self-care (01) ==
LOC: ER 10:54
PROVIDERS: Physician Assistant
DX: R10.11 Right upper quadrant pain (principal); I10 Essential (primary) hypertension; J44.9 Chronic obstructive pulmonary disease, unspecified; Z87.891 Personal history of nicotine dependence; Z79.899 Other long term (current) drug therapy
CPT/HCPCS: 36415; 74177; 76705; 80053; 83690; 85025; 99284-25; Q9967

== ENCOUNTER → 2021-12-14 19:05 | Emergency (ER) | payer OTHER | END | disposition left against medical advice (07) | LOC: ER 19:05 | DX: Z53.21 Procedure and treatment not carried out due to patient leaving prior to being seen by health care provider (principal) ==

== ENCOUNTER → 2022-12-26 | Outpatient (CLI) | payer OTHER ==
[~2022-12-26] MED LIST changes: +CLON1 PO; +Fenofibrate134 MG PO; +OMEP20ER PO; +RAYOS PO; +TRAM50 PO
== END | disposition home or self-care (01) ==
LOC: LAB 13:50 → LAB SHORT 13:50
DX: R82.998 Other abnormal findings in urine (principal)
CPT/HCPCS: 87086

== ENCOUNTER 2023-02-14 11:21 | Emergency (ER) | payer OTHER ==
[~2023-02-14] VITALS: Ht 182.9 cm; Wt 113.4 kg
[~2023-02-14 11:21] MED LIST changes: +ARICEPT23 MG PO; -DONE5 PO; -OMEP20ER PO; +OMEPRAZOLE20 M1 PO; +VENL150ER PO; -Venlafaxine H37.5 MG PO
[2023-02-14 11:48] LABS: BASOPHILS ABSOLUTE AUTO 0.05 K/mm3 (0.00-0.23); BASOPHILS PERCENT AUTO 0 % (0-2); EOSINOPHILS ABSOLUTE AUTO 0.04 K/mm3 (0.00-0.68); EOSINOPHILS PERCENT AUTO 0 % (0-6); Hematocrit 35.1 % (37.0-53.0); Hemoglobin 10.8 g/dL (13.5-17.5); IMMATURE GRAN ABSOLUTE AUTO 0.89 K/mm3 (0.00-0.10); IMMATURE GRAN PERCENT AUTO 5 % (0-1); LYMPHOCYTES ABSOLUTE AUTO 1.45 K/mm3 (0.84-5.20); LYMPHOCYTES PERCENT AUTO 7 % (21-46); MONOCYTES ABSOLUTE AUTO 2.91 K/mm3 (0.16-1.47); MONOCYTES PERCENT AUTO 15 % (4-13); Mean Corpuscular HGB 30.9 pg (26.0-34.0); Mean Corpuscular HGB Conc 30.8 g/dL (31.5-36.5); Mean Corpuscular Volume 100 fL (80-100); Mean Platelet Volume 10.4 fL (9.1-12.4); NEUTROPHILS ABSOLUTE AUTO 14.34 K/mm3 (1.96-9.15); NEUTROPHILS PERCENT AUTO 73 % (41-73); Platelet Count 238 K/mm3 (150-400); RDW Standard Deviation 54.8 fL (35.1-46.3); White Blood Cell Count 19.68 K/mm3 (4.00-11.30)
[2023-02-14] MEDS ORDERED: METO2.5 PO (11:53)
[2023-02-14 12:26] LABS: Albumin, Blood 3.8 g/dL (3.4-5.0); Albumin/Globulin Ratio 0.8 (0.8-1.8); Bilirubin, Total 0.7 mg/dL (0.1-1.0); Bun/Creatinine Ratio 18.7 (12.0-20.0); Creatinine, Blood 1.23 mg/dL (0.60-1.20); Globulin, Blood 4.5 g/dL (2.2-4.0); Total Protein, Blood 8.3 g/dL (6.4-8.2)
[2023-02-14] MEDS ORDERED: PRED20 PO (13:08)
[2023-02-14] MEDS ORDERED: AZIT250 PO (13:08)
== END 2023-02-14 13:16 | disposition home or self-care (01) ==
LOC: ER 11:21
PROVIDERS: Emergency Medicine
DX: J44.1 Chronic obstructive pulmonary disease with (acute) exacerbation (principal); I25.10 Atherosclerotic heart disease of native coronary artery without angina pectoris; I10 Essential (primary) hypertension; F17.210 Nicotine dependence, cigarettes, uncomplicated; Z79.899 Other long term (current) drug therapy; Z79.52 Long term (current) use of systemic steroids; Z95.1 Presence of aortocoronary bypass graft
CPT/HCPCS: 71045; 80053; 85025; 93005; 93010; 94640; 94664; A9270